=== PATIENT | male | born 2005 | race Caucasian/White ===

== ENCOUNTER 2024-07-18 17:47 | Emergency (ER) | payer BC, SELFPAY ==
[2024-07-18 17:49] VITALS: BP 142/80; PULSE 129; RESP 16; TEMP 39.4
[2024-07-18 17:58] VITALS: BP 142/80; PULSE 129; RESP 16; TEMP 39.4
[2024-07-18 18:00] LABS: Bilirubin Negative (Negative); Blood Large (Negative); Clarity Clear (Clear); Glucose Negative (Negative); Ketones Negative (Negative); Leukocyte Esterase Negative (Negative); Nitrite Negative (Negative); Specific Gravity <= 1.005 (1.005-1.025); Urobilinogen 0.2 mg/dL (Up to 0.2); pH 5.5 (5-8)
[2024-07-18 18:09] LABS: Bacteria Negative HPF (Negative); Crystals Negative HPF (Negative); Epithelial Cells Negative HPF (Negative); Mucus Trace (Negative); RBC >50 HPF (0-2); WBC 0-2 HPF (0-5)
[2024-07-18 18:10] LABS: C & S Indicated? No
--- NOTE | 2024-07-18 18:15 | DI.RAD_ITS ---
Exam(s) XR CHEST 2V PA LATERAL EXAM: XR CHEST 2V PA LATERAL CLINICAL HISTORY: Sepsis. TECHNIQUE: 2D digital imaging was performed. COMPARISON: No exams were available for comparison FINDINGS: 2 views: Heart size is normal. The mediastinum is not widened. Lungs are clear. No infiltrates nor pleural effusions. IMPRESSION: No acute pulmonary findings. DATA REPOSITORY: RADIATION DOSE DELIVERED:
[2024-07-18] MEDS: Lidocaine/Prilocaine Cream 5 GM TUBE TP (18:26)
[2024-07-18 18:31] VITALS: PULSE 80; RESP 20; TEMP 38.3; O2SAT 99
[2024-07-18] MEDS: Lactated Ringers 1,000 ML 1000 ML IV (18:45)
[2024-07-18 19:02] LABS: Abs Immature Grans 0.01 10^3/uL (0.0-0.06); Absolute Basophil Count 0.02 10^3/uL (0.0-0.2); Absolute Eosinophil Count 0.01 10^3/uL (0.0-0.7); Absolute Lymphocyte Count 0.57 10^3/uL (1.2-3.4); Absolute Monocyte Count 0.81 10^3/uL (0.1-0.8); Basophils % 0.5 %; Eosinophils % 0.2 %; HCT 43.3 % (40.0-50.0); HGB 15.4 g/dL (13.5-17.5); Immature Grans % 0.2 %; Lymphocytes % 14.2 %; MCH 30.3 pg (27.0-33.0); MCHC 35.6 % (32.0-36.0); MCV 85 fL (80-95); MPV 9.2 fL (8.0-11.0); Monocytes % 20.1 %; Neutrophils % 64.8 %; Platelet Count 202 10^3/uL (130-400); RBC 5.08 10^6/uL (4.36-5.78); RDW 12.1 % (11.8-14.1); RDW-SD 37.9 fL; WBC 4.02 10^3/uL (4.4-10.8)
[2024-07-18 19:03] LABS: Lactate 2.1 mmol/L (<or=2.0)
[2024-07-18] MEDS: Ondansetron 4 MG/2 ML VIAL IVP (19:07)
[2024-07-18 19:12] LABS: INR 1.2 (0.9-1.1); Prothrombin Time 11.7 sec (9.1-11.1)
[2024-07-18 19:23] LABS: ALT 56 U/L (16-63); AST 30 U/L (15-37); Alkaline Phosphatase 148 U/L (46-116); Anion Gap 6.6 mmol/L (3-11); BUN 13 mg/dL (7-18); Bilirubin, Total 0.45 mg/dL (0.2-1.0); CO2 30.4 mmol/L (21.0-32.0); CREATININE 1.2 mg/dL (0.70-1.30); Calcium 9.3 mg/dL (8.5-10.1); Chloride 100 mmol/L (98-107); Estimated GFR 89.34 (mL/min/1.73m2); Glucose 96 mg/dL (74-106); Magnesium 1.8 mg/dL (1.8-2.4); Potassium 3.5 mmol/L (3.5-5.1); Sodium 137 mmol/L (136-145); Total Protein 7.8 g/dL (6.4-8.2)
--- NOTE | 2024-07-18 19:50 | DI.CT_ITS ---
Exam(s) CT ABDOMEN PELVIS W EXAM: CT ABDOMEN PELVIS W CLINICAL HISTORY: Painless hematuria. TECHNIQUE: Imaging Protocol: Axial computed tomography images with coronal and sagittal reformatted images were created and reviewed CONTRAST MATERIAL: Intravenous: Omnipaque-350 100cc Oral: None COMPARISON: No exams were available for comparison FINDINGS: VISUALIZED LUNG BASES: No significant nodules nor pleural effusions evident. ABDOMEN: There is no ascites. LIVER: There are no focal hepatic lesions evident. No dilated intrahepatic ducts. GALLBLADDER/BILIARY: No obvious gallbladder pathology. CBD is not dilated. PANCREAS: No evidence of pancreatic mass nor dilatation of the pancreatic duct. SPLEEN: Spleen size is upper normal. There are no splenic lesions. Splenic and portal veins are pat ent. ADRENALS: There are no significant adrenal masses. KIDNEYS:No cysts evident. No solid renal masses. No calculi nor hydronephrosis.. ABDOMINAL AORTA: Abdominal aorta is not enlarged. LYMPH NODES:There is no retroperitoneal nor paraaortic adenopathy. ABDOMINAL WALL: No evidence of significant anterior abdominal wall nor inguinal hernia. GI: There is no evidence of bowel obstruction, free air, nor abscess. PELVIS: GI: No evidence of appendicitis.No evidence of sigmoid diverticulitis. LYMPH NODES: There is no intrapelvic nor inguinal adenopathy. REPRODUCTIVE: Prostate size normal. Seminal vesicles unremarkable. URINARY BLADDER: There is mild uniform thickening of the urinary bladder wall for this age group. No focal mass. No radiopaque calculi nor clots in the urinary bladder lumen. There is no perivesicula r streaking. The pelvic ureters are not dilated. OSSEOUS: No fractures and no significant osseous lesions. 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 IMPRESSION: 1. In this 18-year-old patient with hematuria there are no significant focal findings in the kidneys but the urinary bladder wall appears mildly thickened in uniform fashion. This is more than expected in this age group. Suspect possible cystitis. There are no focal masses nor clots nor radiopaque c alculi in the bladder lumen. Ureters are not dilated. 2. Prostate size normal. Seminal vesicles unremarkable. 3. There are bilateral pars defects at L5 level with mild anterolisthesis of L5 upon S1 noted. Study 1st read by [facility] Final report called by myself to ER physician 07/19/2024 at 4:55 p.m. RADIATION DOSE DELIVERED: 464.17mGy.cm Total DLP DATA REPOSITORY: All CT scans at this facility are submitted to the National Radiology Data Registry (NRDR) Dose Index Registry (DIR) with the [employer] ([employer]). RADIATION OPTIMIZATION: All CT scans at this facility use at least one of these dose optimization te chniques: automated exposure control; mA and/or kV adjustment per patient size (includes targeted exa ms where dose is matched to clinical indication); or iterative reconstruction.
[2024-07-18] MEDS: Omnipaque 350 MG/ML 100 ML BTL 75 ML IJ (19:53)
[2024-07-18] MEDS: Normal Saline - Diluent 50 ML VIAL IJ (19:55)
--- NOTE | 2024-07-18 20:00 | ED.GENADUL_ITS ---
Discharge Plan Disposition Patient Disposition: Home Condition: Stable Discharge Details Clinical Impression: Influenza A, Immunocompromised state due to drug therapy, SIRS (systemic inflammatory response syndrome), Hematuria Primary Care Provider: Robyn,Local ED Provider: Yuni Fierro Home Meds and New Rx's Prescriptions: No Action leflunomide 20 mg tablet 20 mg PO DAILY diphenhydramine HCl [Allergy (diphenhydramine)] 25 mg capsule 25 mg PO ONCE PRN Patient Comments: 25 - 100mg folic acid 1 mg tablet 1 mg PO DAILY cetirizine [24Hour Allergy] 10 mg tablet 10 mg PO DAILY PRN ibuprofen [Advil] 200 mg tablet 200 mg PO ONCE Patient Comments: 200-800mg Rx Instructions: 200-800mg fluticasone propionate 110 mcg/actuation HFA aerosol inhaler 1 inh inhalation BID albuterol sulfate 90 mcg/actuation aerosol powdr breath activated 2 inh inhalation Q4H PRN Discharge Instructions Instructions: Flu, Adult ED Additional Instructions: You were seen in the emergency department today for evaluation of fever and respiratory illness as well as blood in your urine. In our emergency department you had a full physical examination performed, received fluids for rehydration, had laboratory studies that were reassuring, but you were found to be positive for influenza A. There is blood in your urine but I see no sign of infection that would require ongoing antibiotic treatment. Your chest x-ray did not show any signs of pneumonia, and you had a CT of your belly that did not show any kidney stones, masses in your kidney or bladder, or any other abnormalities that would account for your symptoms. It is safe for you to follow-up at your scheduled appointment on Sunday, and please mention this visit to your provider as they will need to continue to follow you to ensure that you are improving from your influenza A, and follow-up on the hematuria, for which we were unable to find a cause in the emergency department setting. Your new immunosuppressant medication can be taken with ibuprofen and Tylenol with caution, as it can cause some damage to the liver or kidneys if you take either of these medications in excess. In general, 600 mg of ibuprofen taken every 6 hours as needed is a safe dose, but you should try not to take it for more than 3 days in a row. You can take 2 regular strength Tylenol, 650 mg, every 6 hours as needed and still be within a safe dose if you are having persistent high fevers. You will be contacted if there are any positive results of your blood cultures. Thank you for allowing us to be part of your care. Stand Alone Forms: School Release HPI General Mode of arrival: ambulatory . Date/Time Provider Initiated Documentation: 07/18/24 17:55 . Limitations to Documentation: no limitations . Information obtained by: patient, family and old records reviewed . 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 He states that he has had a fever since Sunday night, has noted some generalized abdominal discomfort, and noted some hematuria that was painless and not associated with dysuria today. He did take an ibuprofen 1 hour prior to arrival for a very high fever and states that it did not improve his temperature. He states that he has not had nausea vomiting, has not had upper respiratory symptoms. Exam: Gen: Awake and alert, in no apparent distress HEENT: Non-icteric sclera Neck: Supple Lungs: No apparent respiratory distress, normal respiratory effort. Lung sounds clear and equal bilaterally without wheezes, rhonchi, rales CV: Appears well perfused, heart with regular rate and rhythm, strong distal pulses Abdomen: Non-distended, soft, nontender to palpation without rigidity, rebound, or guarding MSK: Moves 4 extremities without apparent limitation in ROM Skin: Visualized skin without rashes, cyanosis. 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 The patient does have a small pustule to the side of his penis, concerning for a pimple or small folliculitis with no evidence of surrounding cellulitic changes. Neuro: Normal Gait, no obvious focal deficits or facial asymmetry. Speaks in full, clear sentences. Psych: Appropriate for situation. MDM: This is a 18-year-old male patient with a history of immunosuppressant drug use presenting for evaluation of fever and hematuria. The patient meets SIRS criteria and I am concerned given his immunocompromise state for potential sepsis, bacteremia, urinary tract infection, URI, pneumonia. I considered other etiologies of painless hematuria including kidney stone, bladder or kidney mass. The patient has no history of hematuria with illnesses, but given that he is being actively worked up for an autoimmune condition, he certainly could have conditions such as IgA nephropathy, glomerulonephritis, and other abnormalities beyond the scope of the emergency department workup. I considered neutropenic fever, metabolic and electrolyte derangements, kidney injury. We will obtain blood culture, laboratory studies to include CBC, CMP, magnesium, lactate, urinalysis, and influenza/COVID swab. I will obtain a chest x-ray, as well as a CT scan of the abdomen and pelvis with contrast to evaluate the cause of his hematuria. He will receive a liter of IV fluids and a gram of ceftriax one as empiric antibiosis given his immunocompromise state. ED Course: I independently interpreted the laboratory studies, which show no significant leukocytosis, anemia, or thrombocytopenia. The chemistry panel is without evidence of electrolyte abnormality, kidney dysfunction, or liver injury. The patient is not neutropenic. Lactate is very slightly elevated to 2.1, Pro-Mark is low, urinalysis is noninfectious though he does have large hematuria. Chest x-ray and CT scan of the abdomen was reviewed by myself, and notes no pneumonia, renal stones, urinary system masses, or other acute abnormalities to explain the patient's symptoms. The patient's swab was positive for influenza A and I feel that this is the most likely etiology of his SIRS given his upper respiratory type symptoms. It does not adequately explain his hematuria, which will need to be continued to be worked up in the outpatient environment. As he is not neutropenic I do not feel that he requires admission for ongoing antibiosis. The patient does have follow-up with his primary care provider scheduled already for Sunday, and understands that he needs to mention this visit and any symptoms that change, worsen, or persist. He will be contacted with any positive culture results, we did discuss the use of Tylenol and ibuprofen with caution in the setting of his potentially hepatotoxic medications, and had an extended discussion regarding return precautions. At this time, the patient has had a full medical evaluation and is safe for discharge to home. They are hemodynamically stable, ambulatory, and tolerating PO. They are understanding of the follow-up plan and return precautions. They left our facility without incident. Yuni Fierro MD Related Data Home Medications ?Medication ?Instructions ?Recorded ?Confirmed albuterol sulfate 90 mcg/actuation 2 inh inhalation Q4H PRN 07/18/24 07/18/24 breath activated powder inhaler cetirizine 10 mg tablet (24Hour 10 mg PO DAILY PRN 07/18/24 07/18/24 Allergy) diphenhydramine HCl 25 mg capsule 25 mg PO ONCE PRN 07/18/24 07/18/24 (Allergy (diphenhydramine)) fluticasone propionate 110 1 inh inhalation BID 07/18/24 07/18/24 mcg/actuation HFA aerosol inhaler folic acid 1 mg tablet 1 mg PO DAILY 07/18/24 07/18/24 ibuprofen 200 mg tablet (Advil) 200 mg PO ONCE 07/18/24 07/18/24 leflunomide 20 mg tablet 20 mg PO DAILY 07/18/24 07/18/24 Allergies Allergy/AdvReac Type Severity Reaction Status Date / Time No Known Allergies Allergy Unverified 07/18/24 17:55 General Stated Complaint: Fever FANTASMA: 3 Course Vital Signs Vital signs: Vital Signs Temperature 39.4 C H 07/18/24 17:49 Pulse 129 H 07/18/24 17:49 Respiratory Rate 16 07/18/24 17:49 Blood Pressure 142/80 H 07/18/24 17:49 Temperature 38.3 C H 07/18/24 18:31 Temperature Source Oral 07/18/24 18:31 Pulse 80 07/18/24 18:31 Respiratory Rate 20 07/18/24 18:31 Blood Pressure 142/80 H 07/18/24 17:58 Blood Pressure Position Sitting 07/18/24 17:58 Pulse Oximetry 99 07/18/24 18:31 Oxygen Delivery Method Room Air 07/18/24 18:31 Oxygen Flow Rate 0 07/18/24 17:58 Pain Level 4 07/18/24 17:58 Lab/Test Results Lab/Test Results: 07/18/24 18:47 Blood Blood Culture - Pending 07/18/24 18:20 Blood Blood Culture - Pending Laboratory Tests Range/Units 07/18/24 07/18/24 17:48 18:47 WBC (4.4-10.8) 10^3/uL 4.02 L RBC (4.36-5.78) 10^6/uL 5.08 Hgb (13.5-17.5) g/dL 15.4 Hct (40.0-50.0) % 43.3 MCV (80-95) fL 85 MCH (27.0-33.0) pg 30.3 MCHC (32.0-36.0) % 35.6 RDW (11.8-14.1) % 12.1 Plt Count (130-400) 10^3/uL 202 MPV (8.0-11.0) fL 9.2 Immature Gran % % 0.2 Neutrophils % % 64.8 Lymphocytes % % 14.2 Monocytes % % 20.1 Eosinophils % % 0.2 Basophils % % 0.5 Nucleated RBC % (0.0-0.3) % 0.0 Absolute Neutrophils (1.2-6.7) 10^3/uL 2.60 Absolute Lymphocytes (1.2-3.4) 10^3/uL 0.57 L Absolute Monocytes (0.1-0.8) 10^3/uL 0.81 H Absolute Eosinophils (0.0-0.7) 10^3/uL 0.01 Absolute Basophils (0.0-0.2) 10^3/uL 0.02 PT (9.1-11.1) sec 11.7 H INR (0.9-1.1) 1.2 H VBG Lactate (<or=2.0) mmol/L 2.1 H* Sodium (136-145) mmol/L 137 Potassium (3.5-5.1) mmol/L 3.5 Chloride (98-107) mmol/L 100 Carbon Dioxide (21.0-32.0) mmol/L 30.4 Anion Gap (3-11) mmol/L 6.6 BUN (7-18) mg/dL 13 Creatinine (0.70-1.30) mg/dL 1.2 Est GFR (CKD-EPI 2020) (mL/min/1.73m2) 89.34 Glucose (74-106) mg/dL 96 Calcium (8.5-10.1) mg/dL 9.3 Magnesium (1.8-2.4) mg/dL 1.8 Total Bilirubin (0.2-1.0) mg/dL 0.45 AST (15-37) U/L 30 ALT (16-63) U/L 56 Alkaline Phosphatase (46-116) U/L 148 H Total Protein (6.4-8.2) g/dL 7.8 Albumin (3.4-5.0) g/dL 4.0 Procalcitonin ng/mL 0.20 Urine Color (Yellow) [place] Urine Clarity (Clear) Clear Urine pH (5-8) 5.5 Ur Specific [place] (1.005-1.025) <= 1.005 Urine Protein (Neg-Trace) mg/dL 100 H Urine Ketones (Negative) mg/dL Negative Urine Blood (Negative) Large H Urine Nitrite (Negative) Negative Urine Bilirubin (Negative) Negative Urine Urobilinogen (Up to 0.2) mg/dL 0.2 Ur Leukocyte Esterase (Negative) Negative Urine RBC (0-2) HPF >50 H Urine WBC (0-5) HPF 0-2 Ur Epithelial Cells (Negative) HPF Negative Urine Crystals (Negative) HPF Negative Urine Bacteria (Negative) HPF Negative Urine Mucus (Negative) Trace Ur Culture Indicated? No Urine Glucose (Negative) mg/dL Negative Medical Decision Making Quality:SDOH Health Related Social Needs: No Data to Display PFSH All Active Problems (Updated 07/18/24 @ 20:53 by Yuni Fierro MD) Hematuria (Acute) SIRS (systemic inflammatory response syndrome) (Acute) Immunocompromised state due to drug therapy (Acute) Influenza A (Acute) Social History Smoking/Tobacco Use Status: Never Smoking risk assessment performed?: Yes Alcohol Intake: never Drug use: Never Housing: other Do you feel safe at home: Yes Do you feel safe in your relationship?: Yes
[2024-07-18] MEDS: cefTRIAXone 1 GM/50 ML BAG IVPB (20:01)
--- NOTE | 2024-07-18 20:11 | DI.VRAD_ITS ---
PROCEDURE INFORMATION: Exam: XR Chest Exam date and time: 07/18/2024 19:49 Age: 18 years old Clinical indication: Other: Sepsis TECHNIQUE: Imaging protocol: Radiologic exam of the chest. Views: 2 views. COMPARISON: CT ABDOMEN PELVIS W 07/18/2024 19:37 FINDINGS: Lungs: No airspace consolidation. No significant interstitial disease for the degree of inflation. Pleural spaces: No pleural effusion. No pneumothorax. Heart/Mediastinum: No cardiomegaly. Bones/joints: No acute fracture. IMPRESSION: No acute cardiopulmonary pathology. Dictated and Authenticated by: Karrie Lorenz MD. Ordering:KATELYNN Niño MD
--- NOTE | 2024-07-18 20:12 | DI.VRAD_ITS ---
PROCEDURE INFORMATION: Exam: CT Abdomen And Pelvis With Contrast Exam date and time: 07/18/2024 19:37 Age: 18 years old Clinical indication: Other: Painless hematuria TECHNIQUE: Imaging protocol: Computed tomography of the abdomen and pelvis with contrast. Radiation optimization: All CT scans at this facility use at least one of these dose optimization techniques: automated exposure control; mA and/or kV adjustment per patient size (includes targeted exams where dose is matched to clinical indication); or iterative reconstruction. Contrast material: [id number]; Contrast volume: 75 ml; Contrast route: INTRAVENOUS (IV); COMPARISON: No relevant prior studies available. FINDINGS: Liver: No mass. Gallbladder and biliary ducts: No calcified stones. No gross ductal dilation. Pancreas: No ductal dilation. No mass . Spleen: No splenomegaly or suspicious lesions. Adrenal glands: No suspicious mass. Kidneys and ureters: No renal masses or hydronephrosis bilaterally. No significant stones in the collecting systems on postcontrast imaging. Stomach and bowel: Right-sided colonic submucosal fat deposition. No convincing wall thickening in the colon. No enteritis or obstruction. Appendix: No evidence of appendicitis. Intraperitoneal space: No free air. No significant fluid collection. Vasculature: No abdominal aortic aneurysm. Lymph nodes: Mesenteric lymph nodes appear within normal limits for the patient's age. No significant adenopathy. Urinary bladder: Bladder wall upper limits of normal. No surrounding edema. No stones in the urinary bladder. Reproductive: Unremarkable as visualized. Bones/joints: Grade one anterolisthesis of L5 over S1 and L4 in the setting of pars defects. Soft tissues: No suspicious lesions. IMPRESSION: 1. No acute findings. 2. Incidental findings as described. Dictated and Authenticated by: Karrie Lorenz MD. Ordering:KATELYNN Niño MD
[2024-07-18 20:17] LABS: COVID-19 PCR Negative (Negative); Influenza A PCR Positive (Negative); Influenza B PCR Negative (Negative); RSV PCR Negative (Negative)
[2024-07-18 20:21] LABS: Source NASOPHARYNX
[2024-07-18 21:02] VITALS: BP 139/75; PULSE 81; RESP 18; TEMP 37.3; O2SAT 97
[2024-07-18 21:17] VITALS: BP 139/75; PULSE 81; RESP 18; TEMP 37.3; O2SAT 97
== END 2024-07-18 21:21 | disposition home or self-care (01) ==
PROVIDERS: Emergency Provider Emergency Medicine; PCP Nurse Practitioner Family
DX: J10.1 Influenza due to other identified influenza virus with other respiratory manifestations (principal); R65.10 Systemic inflammatory response syndrome (SIRS) of non-infectious origin without acute organ dysfunction; Z79.69 Long term (current) use of other immunomodulators and immunosuppressants
CPT/HCPCS: 80053; 84145; 87040; 87637; 96361; 96374; 96375; 99285; 71046; 74177; 81003; 81015; 83605; 83735; 85025; 85610; J0696; J2405; J3490